=== PATIENT | female | born 1935 | race Caucasian/White ===

== ENCOUNTER 2018-12-13 16:47 | Inpatient (IN) | payer OTHER ==
[~2018-12-13] VITALS: Ht 162.6 cm; Wt 81.0 kg
[2018-12-13] MEDS ORDERED: SODIUM CHLORIDE 0.9% 1,000 ML IV ONE (19:10)
[2018-12-13] MEDS ORDERED: ACETAMINOPHEN 325 MG TAB PO ONE (19:15)
[2018-12-13 19:25] LABS: Basophils # (auto) 0 uL; Basophils % (auto) 0.2 % (0.0-2.0); Eosinophils # (auto) 0 uL; Eosinophils % (auto) 0.1 % (0.0-7.0); Hematocrit 46.6 % (41.0-53.0); Hemoglobin 14.9 g/dL (13.5-17.5); Lymphocytes # (auto) 0.6 uL; Lymphocytes % (auto) 5.4 % (10.0-50.0); Mean Corpuscular Hemoglobin 28.8 pg (28.0-32.0); Mean Corpuscular Volume 89.9 fL (80.0-100.0); Monocytes # (auto) 0.9 uL; Monocytes % (auto) 9.2 % (0.0-12.0); Neutrophils # (auto) 8.7 uL; Neutrophils % (auto) 85.1 % (37.0-80.0); Nucleated Red Blood Cells % 0.1 %; Platelet Count (auto) 154 10^3/uL (140-450); Red Blood Cells 5.18 10^6/uL (4.5-5.90); Red Cell Distribution Width 14.7 % (11.8-14.3); White Blood Cell 10.3 10^3/uL (4.4-10.8)
[2018-12-13 19:40] LABS: INR 0.99 (0.9-1.15); Partial Thromboplastin Time 25.8 sec (23.64-32.05)
[2018-12-13 19:53] LABS: Alanine Aminotransferase 63 U/L (13-56); Alkaline Phosphatase 87 U/L (45-117); Anion Gap 7 (5-15); Aspartate Aminotransferase 62 U/L (15-37); BUN/Creatinine Ratio 44.2; Blood Urea Nitrogen 34 mg/dL (7-18); Carbon Dioxide 28 mmol/L (21-32); Chloride 113 mmol/L (98-107); GFR African American 93 mL/min; GFR Non-African American 76 mL/min; Glucose 103 mg/dL (74-106); Potassium 3.3 mmol/L (3.5-5.1); Sodium 148 mmol/L (136-145)
[2018-12-13 19:54] LABS: Albumin 2.8 g/dL (3.4-5.0); Bilirubin, Total 0.5 mg/dL (0.2-1.0); Total Protein 6.7 g/dL (6.4-8.2)
[2018-12-13] MEDS ORDERED: CLINDAMYCIN 600MG IV 50 ML IV ONE (21:00)
[2018-12-13] MEDS ORDERED: cefTRIAXone 1GM/50ML D5W 50 ML IV ONE (21:15)
[2018-12-13] MEDS ORDERED: ALBUTEROL SULF 2.5 MG/0.5ML(0.5%) NEB SOLN NEB PRN (21:15)
[2018-12-13] MEDS ORDERED: DOCUSATE SOD 100 MG CAP PO PRN (21:15)
[2018-12-13] MEDS ORDERED: POTASSIUM CHL 20 Meq TABLET PO ONE (21:15)
[2018-12-13] MEDS ORDERED: ACETAMINOPHEN 325 MG TAB PO PRN (21:15)
[2018-12-13] MEDS ORDERED: TEMAZEPAM 15 MG CAP PO PRN (21:15)
[2018-12-13] MEDS ORDERED: ONDANSETRON HCL 4 MG/2 ML VIAL IV PRN (21:15)
[2018-12-13 22:00] LABS: Urine Bacteria MANY /hpf (None Seen); Urine Blood 1+ /uL (Negative); Urine WBC 207 /hpf (0 - 5); Urine WBC Clumps PRESENT /hpf (None Seen)
[2018-12-13] MEDS: FAMOTIDINE 20 MG TAB PO SCH (22:15)
--- NOTE | 2018-12-13 23:00 | NUR ---
MS admit from ER CHARBEL QURESHI admitted to tele/MS. Patient oriented to Kb Kelly, primary RN, unit, room, bed, and unit policies regarding patient care and visiting hours. Patient weighed by bed scale and encouraged to call if they need something. All questions and concerns addressed, patient verbalized understanding. No s/s of distress or sob. Patient denies pain at this time. Patient on 3L of oxygen with even and unlabored breathing. Alert and oriented x 4. Kramer to gravity draining kenneth urine. Bed in lowest position with bed alarm on and call light is within reach.
[2018-12-13 23:10] VITALS: BP 109/50
[2018-12-13 23:39] VITALS: BP 109/50
[2018-12-14] MEDS ORDERED: ASPI81TA27 PO (00:17)
[2018-12-14] MEDS ORDERED: IPRIH INH (00:17)
[2018-12-14] MEDS ORDERED: ALBUAER3 IN (00:17)
[2018-12-14] MEDS: CIPROFLOXACIN 0.3%OPTH(EYE) SOL 5ML RIGHTEYE SCH ×3 (00:35→16:46)
--- NOTE | 2018-12-14 02:04 | NUR ---
Respiratory note: PT ASSESSED FOR PRN MED NEB TX. HR 81, RR 18, SPO2 95% ON 3L NC. NO SIGNS OF ANY RESPIRATORY DISTRESS NOTED. ADVISED PT TO CALL IF TX IS NEEDED.
[2018-12-14 02:06] VITALS: BP_SYST 50
[2018-12-14 05:35] VITALS: BP 107/59
--- NOTE | 2018-12-14 06:35 | NUR ---
Call to pharmacy Called pharmacy and requested eyedrops for patient. Pharmacy said they would tube them up.
[2018-12-14 07:15] LABS: Anion Gap 7 (5-15); Blood Urea Nitrogen 24 mg/dL (7-18); Calcium 8.3 mg/dL (8.5-10.1); Carbon Dioxide 29 mmol/L (21-32); Chloride 115 mmol/L (98-107); GFR African American 156 mL/min; GFR Non-African American 129 mL/min; Glucose 97 mg/dL (74-106); Potassium 3.2 mmol/L (3.5-5.1); Sodium 151 mmol/L (136-145)
[2018-12-14 07:23] LABS: Basophils # (auto) 0 uL; Basophils % (auto) 0.2 % (0.0-2.0); Eosinophils # (auto) 0.1 uL; Eosinophils % (auto) 1.2 % (0.0-7.0); Hematocrit 38.5 % (36.0-46.0); Hemoglobin 12.9 g/dL (12.2-16.2); Lymphocytes # (auto) 0.6 uL; Lymphocytes % (auto) 7.1 % (10.0-50.0); Mean Corpuscular Hemoglobin 28.9 pg (28.0-32.0); Mean Corpuscular Hgb Conc. 33.4 g/dL (32.0-36.0); Mean Corpuscular Volume 86.6 fL (80.0-100.0); Monocytes # (auto) 0.8 uL; Monocytes % (auto) 9.2 % (0.0-12.0); Neutrophils % (auto) 82.3 % (37.0-80.0); Platelet Count (auto) 151 10^3/uL (140-450); Red Blood Cells 4.45 10^6/uL (4.0-5.20); Red Cell Distribution Width 14.4 % (11.8-14.3); White Blood Cell 8.5 10^3/uL (4.4-10.8)
[2018-12-14 08:35] VITALS: BP 104/53
[2018-12-14] MEDS ORDERED: cefTRIAXone 1GM/50ML D5W 50 ML IV SCH (09:00)
--- NOTE | 2018-12-14 09:35 | NUR ---
Respiratory note: ROUTINE PRN MN TX ASSESSMENT. HR 84, RR 18, POX 94% ON 2L/M NC, BREATH SOUNDS ARE CLEAR. NO SOB OR DISTRESS NOTED. TX NOT INDICATED AT THIS TIME. PT WAS NOTIFY TO HAVE RT PAGE FOR MN TX.
[2018-12-14] MEDS: FAMOTIDINE 20 MG TAB PO SCH (09:39)
--- NOTE | 2018-12-14 09:39 | NUR ---
CARLOS HELD PATIENT REQUESTS DOCTOR HERE VERIFY BLOOD THINNER WITH HER PRIMARY CAR PROVIDER. Addendum: 12/14/18 at 0941 by JULIETH MENDEZ RN PT ALSO REPORTS SHE WOULD LIKE TO GO HOME WHEN DISCHARGED AND NOT TO A ALF FACILITY. PT HAD SMALL BROWN FORMED BM. BED ALARM ON.
[2018-12-14] MEDS ORDERED: ENOXAPARIN SOD 40 MG/0.4 ML SYRINGE SC SCH (10:00)
[2018-12-14] MEDS ORDERED: POTASSIUM CHLORIDE 40 MEQ in D5W 5% 1,000 ML IV SCH (11:15)
[2018-12-14] MEDS ORDERED: POTASSIUM CHL 20 Meq TABLET PO ONE (11:15)
--- NOTE | 2018-12-14 11:23 | NUR ---
Nutrition consult/assessment Notes Please see attached link for complete assessment Est. Needs ABW [phone] kcal (23-25 kcal/kgBW), 67-73 gms pro (1.0-1.1 gms/kgBW). Will continue to monitor pertinent labs and reassess nutrient need prn Addendum: 12/14/18 at [address] Amended: Links added.
--- NOTE | 2018-12-14 11:56 | NUR ---
WOUND CARE NOTE: Wound care in to see patient per wound care request regarding "skin tear to tez area" that are noted upon admission. Bedside nurse took photograph of patient's skin issue upon admission for reference. Patient is 83 years old female with admitting diagnosis of Failure To Thrive. Patient is resting in bed in Rm. 277B. She's awake, alert and oriented. Patient needs assistance in turning and repositioning. Her Dane score is 15. Skin assessment done with the assistance of patient's nurse, HUNG Emanuel. Patient's lower buttocks, perineum has multi small intact and open blisters and superficial skin tear skin irritation to Rt groin. Skin issue appears to be moisture related. On reports patient had a fall , stayed on the ground for a day with incontinence of urine. Patient is receiving BID/PRN cleaning and application of Barrier cream to sacral/buttocks and perineum. Patient tolerated well, repositioned for comfort, redistributed pressure points with pillows. RECOMMENDATION: BID/PRN cleaning and application of Z Guard cream to sacral, buttocks and perineum per MD order, Dietary consult, frequent turning and repositioning schedule as condition permits, redistribute pressure points with pillows, elevate heels on pillows, continue monitoring by wound care while patient is hospitalized. Addendum: 12/14/18 at 1703 by Afsaneh Madrid RN Amended: Links added.
--- NOTE | 2018-12-14 12:23 | NUR ---
Received social service referral to provide the pt with an Advance Directive. Pt was provided with advance directive.
[2018-12-14 13:03] VITALS: BP 95/45
--- NOTE | 2018-12-14 13:05 | NUR ---
Asked Dr. Mccall to transfer pt to [facility]
--- NOTE | 2018-12-14 16:25 | NUR ---
[facility] CALLED, [employer]TERN[employer]ER REPORTS THEY ARE STILL WORKING ON TRANSFER.
[2018-12-14 17:04] VITALS: BP 109/47
--- NOTE | 2018-12-14 17:21 | NUR ---
assessment Patient is a 83 year old female who is alert and oriented. Prior to admission patient lived home alone and functioned independently. Patient informed me she has a cane and home 02. Patient informed me her PCP is Dr Lemos at the [facility]. Patient informed me she agrees to transfer to [facility] if asked to go. Patient is refusing placement. Patient informed me she had this fall and couldn't get up. This is her first time of falling. Patient informed me she is very independent. She drives, pays her own bills, and cares for herself just fine. Patient wants to return home on discharge. Patient may benefit from Life alert and has been given information. Patient may also benefit from home health for safety and PT on discharge. Addendum: 12/14/18 at 1724 by Nelsy HERRERA Amended: Links added.
--- NOTE | 2018-12-14 17:56 | NUR ---
DISCHARGE PHOTOS TAKEN PATIENT BACKSIDE AND BELIA AREA CLEANED, AND DISCHARGE PHOTOS TAKEN. Z GUARD REAPPLIED, WILL CONTINUE TO MONITOR.
--- NOTE | 2018-12-14 18:00 | NUR ---
CARMITA FROM [facility] CALLED. PT WILL BE PICKED UP AT 8 PM. PATIENT HAS BEEN ACCEPTED TO [facility]. [phone]. PATIENT IS GOING TO BED 427 AND ACCEPTING DOCTOR IS DOCTOR Abby AYALA. CALLED AND GAVE REPORT TO ELVIN PERSAUD. CALLED PT DAUGHTER NELSON. NOTIFIED NELSON PT GOING TO [facility] AND PROVIDED BED NUMBER, PHONE NUMBER AND ADDRESS OF FACILITY.
[2018-12-14 18:24] VITALS: BP 109/47
--- NOTE | 2018-12-14 18:29 | NUR ---
Respiratory note: PT IN NO DISTRESS. PT IN NO NEED OF SVN AT THIS TIME. BREATH SOUNDS ARE CLEAR TO DIMINISHED BILATERALLY. PT KNOWS TO CALL NURSE IF SOB OCCURS.
--- NOTE | 2018-12-14 18:43 | NUR ---
GAVE REPORT TO LEAD ADVISOR, DISCHARGE PAPER WORK FILLED OUT AND IMAGE DISC IN [place]. NIGHT NURSE AWARE PATIENT STILL NEEDS TO SIGN PAPER WORK. IV AND GONZALEZ LEFT IN PLACE. NOC AWARE [facility] WILL BE HERE AT 2000 TO SEAL EXTRUSION OPERATOR PATIENT.
--- NOTE | 2018-12-14 20:20 | NUR ---
TRANSFER TO [facility] Discharge instructions given as ordered. All questions and concerns addressed. Patient verbalized understanding. IV and Kramer catheter left in place. Medication reconciliation form completed and copy given to patient. Report given to Guillermo from [facility] at 1912. Patient transported by [facility] with all personal belongings. Patients vital signs upon departure was the following: BP: 109/90, HR: 90, RR: 16, TEMP: 98.9, SPO2: 89% on 2L NC. No pain or distress noted at time of departure.
== END 2018-12-14 20:32 | disposition short-term general hospital (02) | DRG 641 ==
LOC: EDBD 16:47 → EDSEX 16:58 → ER 16:58 → OVERFLOW 16:59 → WEST WING 23:13
PROVIDERS: ADMIT Nurse Practitioner Family; ATTEND Internal Medicine Nephrology
DX: E87.0 Hyperosmolality and hypernatremia (principal); L03.213 Periorbital cellulitis; N39.0 Urinary tract infection, site not specified; R62.7 Adult failure to thrive; E87.6 Hypokalemia; H10.9 Unspecified conjunctivitis; Z68.30 Body mass index [BMI] 30.0-30.9, adult; J44.9 Chronic obstructive pulmonary disease, unspecified; R29.6 Repeated falls; Z90.49 Acquired absence of other specified parts of digestive tract; W18.30XA Fall on same level, unspecified, initial encounter; Y93.89 Activity, other specified; Y92.098 Other place in other non-institutional residence as the place of occurrence of the external cause; Y99.8 Other external cause status; Z90.710 Acquired absence of both cervix and uterus
CPT/HCPCS: 36415; 51702; 70450; 70486; 80048; 80053; 81001; 82962; 84484; 85025; 85610; 85730; 93005; 94761; 96361; 96365; G0378; J0696; J2405; J3490